=== PATIENT | female | born 1990 | race Caucasian/White ===

== ENCOUNTER → 2019-09-03 | Emergency (ER) | payer OTHER ==
[~2019-09-03] VITALS: Ht 167.6 cm; Wt 63.5 kg
[2019-09-03 20:50] VITALS: BP_SYST 127
== END | disposition still patient (30) ==
LOC: SED 20:50
DX: F41.9 Anxiety disorder, unspecified (principal); M79.601 Pain in right arm; Z53.21 Procedure and treatment not carried out due to patient leaving prior to being seen by health care provider